=== PATIENT | female | born 1980 | race Caucasian/White ===

== ENCOUNTER 2018-05-31 01:57 | Emergency (ER) | payer BC, MEDICAID ==
[~2018-05-31] VITALS: Ht 165.1 cm; Wt 67.0 kg
[2018-05-31] MEDS ORDERED: ONDANSETRON 2MG/ML, 2ML IVPush ONE (02:30)
[2018-05-31] MEDS ORDERED: PROMETHAZINE 25 MG/ML, 1ML IM ONE (02:30)
[2018-05-31] MEDS ORDERED: SODIUM CHLORIDE FLUSH 10ML SYR IVF ONE (02:30)
[2018-05-31] MEDS ORDERED: ONDANSETRON ODT 4 MG ONE (02:31)
[2018-05-31] MEDS ORDERED: HALOPERIDOL 5 MG/ML ONE (02:44)
[2018-05-31] MEDS ORDERED: PROMETHAZINE 25 MG/ML, 1ML ONE (02:44)
[2018-05-31 02:49] LABS: BASOPHILS # (AUTO) 0.07 x10^3/uL (0-0.1); BASOPHILS % (AUTO) 1 % (0-1); EOSINOPHILS % (AUTO) 4 % (1-7); LYMPHOCYTES # (AUTO) 3.46 x10^3/uL (1-3.4); LYMPHOCYTES % (AUTO) 32 % (22-44); MD NO; MEAN CORPUSCULAR HEMOGLOBIN 29.3 pg (27.0-34.8); MEAN CORPUSCULAR HGB CONC 33.5 g/dL (32.4-35.8); MEAN CORPUSCULAR VOLUME 87.5 fL (80-100); MEAN PLATELET VOLUME 7.9 fL (7.4-10.4); MONOCYTES # (AUTO) 0.78 x10^3/uL (0.2-0.8); MONOCYTES % (AUTO) 7 % (2-9); NEUTROPHILS # (AUTO) 6.09 x10^3/uL (1.8-6.8); NEUTROPHILS % (AUTO) 56 % (42-75); PLATELET COUNT 252 x10^3/uL (130-400); RED BLOOD COUNT 4.98 x10^6/uL (3.82-5.3); RED CELL DISTRIBUTION WIDTH 12.6 % (9.6-15.2)
[2018-05-31 02:59] LABS: ALANINE AMINOTRANSFERASE 42 U/L (12-78); ALBUMIN 3.7 g/dL (3.4-5.0); ANION GAP 7 mmol/L (5-15); CALCIUM 9.7 mg/dL (8.5-10.1); CHLORIDE 108 mmol/L (98-107); CREATININE 0.98 mg/dL (0.55-1.02)
[2018-05-31] MEDS ORDERED: HALOPERIDOL 5 MG/ML IM ONE (03:00)
[2018-05-31 03:04] LABS: ALKALINE PHOSPHATASE 98 U/L (45-117); BILIRUBIN,TOTAL 0.3 mg/dL (0.2-1.0); TOTAL PROTEIN 7.3 g/dL (6.4-8.2)
[2018-05-31] MEDS ORDERED: ONDANSETRON ODT 4 MG PO ONE (03:30)
[2018-05-31] MEDS ORDERED: METHYLNALTREXONE 12 MG/0.6 ML SQ ONE (04:00)
[2018-05-31 04:04] VITALS: BP 148/87
== END 2018-05-31 04:52 | disposition home or self-care (01) ==
LOC: ED 04:46
DX: K59.00 Constipation, unspecified (principal); R11.2 Nausea with vomiting, unspecified; F11.23 Opioid dependence with withdrawal; F17.200 Nicotine dependence, unspecified, uncomplicated
CPT/HCPCS: 36415; 74022; 80053; 83690; 84703; 85025; 96372; 99285; J1630; J2550; Q0162

== ENCOUNTER 2021-07-09 08:51 | Emergency (ER) | payer MEDICAID ==
[~2021-07-09] VITALS: Ht 165.1 cm; Wt 100.0 kg
[2021-07-09 08:54] VITALS: BP 142/98
--- NOTE | 2021-07-09 09:02 | NUR ---
PT WHEELED BACK FROM TRIAGE. ASSISTED C CHANGING INTO GOWN. LAYING ON CART, YELLING OUT & DRY HEAVING, GIVEN EMESIS BAG.
--- NOTE | 2021-07-09 09:08 | NUR ---
PT BIBA FROM HOME FOR WITHDRAWLS. 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 STATES ONLY BEEN USING FOR COUPLE MONTHS. PT ALSO C/O LOWER BACK PAIN. PT UNCOOPERATIVE AT THIS TIME, NO ANSWERING MOST QUESTIONS. PT RESTING IN RDUNBAR, MONITORING IN PLACE, NADN AT THIS TIME, WCTM.
--- NOTE | 2021-07-09 10:15 | NUR ---
PT THREW PHONE AT THIS RN. PT IN ROOM SCREAMING, WON'T ANSWER ANY QUESTIONS OR TELL THIS RN WHAT IS WRONG. EDMD AWARE. DOTTYTM.
--- NOTE | 2021-07-09 11:35 | NUR ---
PT REFUSED VITALS. PT ESCORTED OUT BY SECURITY D/T NOT LEAVING AND SCREAMING/ THROWING THINGS AT THIS RN.
== END 2021-07-09 11:36 | disposition home or self-care (01) ==
LOC: ED 11:08
DX: F11.10 Opioid abuse, uncomplicated (principal)
CPT/HCPCS: 99283; Q0177